=== PATIENT | female | born 1960 | race Caucasian/White ===

== ENCOUNTER 2024-10-12 18:23 | Emergency (ER) | payer MEDICAID ==
[~2024-10-12] VITALS: Ht 154.9 cm; Wt 66.3 kg
[2024-10-12 19:22] VITALS: O2SAT 98
[2024-10-13] MEDS ORDERED: ACET-2708 MT (00:43)
[2024-10-13 01:29] VITALS: BP 188/87; PULSE 84; RESP 16; TEMP 36.78072; O2SAT 98
== END 2024-10-13 01:31 | disposition home or self-care (01) ==
LOC: ER 18:23
DX: M54.50 Low back pain, unspecified (principal); I10 Essential (primary) hypertension; E11.9 Type 2 diabetes mellitus without complications; M79.601 Pain in right arm; G31.89 Other specified degenerative diseases of nervous system
CPT/HCPCS: 72192; 81025; 99284

== ENCOUNTER 2025-06-23 00:07 | Emergency (ER) | payer MEDICAID ==
[~2025-06-23] VITALS: Ht 162.6 cm; Wt 73.0 kg
[~2025-06-23 00:07] MED LIST: ACET-2708 MT
[2025-06-23 00:09] VITALS: BP 158/84; PULSE 80; RESP 16; TEMP 37; O2SAT 98
== END 2025-06-23 04:11 | disposition left against medical advice (07) ==
LOC: ER 00:07
DX: R10.9 Unspecified abdominal pain (principal); Z53.21 Procedure and treatment not carried out due to patient leaving prior to being seen by health care provider